=== PATIENT | male | born 1955 | race Caucasian/White ===

== ENCOUNTER 2017-03-07 11:16 | Emergency (ER) | payer OTHER ==
[2017-03-07 11:22] VITALS: TEMP 97.9
--- NOTE | 2017-03-07 12:00 | EDPHY ---
H & P Stated Complaint: Persistant hiccups for 1 week. Time Seen by Provider: 03/07/17 12:00 - Personal History Current Tetanus Diphtheria and Acellular Pertussis (TDAP): Yes - Medical/Surgical History Hx Asthma: No Hx Chronic Respiratory Disease: No Hx Diabetes: No Hx Cardiac Disease: No Hx Renal Disease: No Hx Cirrhosis: No Hx Alcoholism: No Hx HIV/AIDS: No Hx Splenectomy or Spleen Trauma: No Other PMH: HTN. - Social History Smoking Status: Never smoked Constitutional: Initial Vital Signs Temperature (C) 36.6 C 03/07/17 11:19 Heart Rate 78 03/07/17 11:19 Respiratory Rate 16 03/07/17 11:19 Blood Pressure 157/87 H 03/07/17 11:19 O2 Sat (%) 95 03/07/17 11:19 O2 Delivery Mode Room Air Allergies/Adverse Reactions: No Known Allergies Allergy (Unverified 03/07/17 11:21) Home Medications: Medication Instructions Recorded LORazepam [Ativan 1 mg (RX)] 1 mg PO TID PRN #14 tab 03/07/17 Losartan Potassium 03/07/17 chlorproMAZINE HCL [Thorazine (*)] 25 mg PO TID #30 tab 03/07/17 Medical Decision Making - Diagnostics Imaging Results: Imaging Impressions Chest X-Ray 03/07/17 12:37 Impression: Retrosternal soft tissue opacity may represent a mass. Recommend CT chest to further evaluate. Dr. Downs discussed these findings by telephone with Stef Mccauley MD on at 13:32 hours. Chest/Thorax CTA 03/07/17 13:39 Impression: 1. No pulmonary embolism to the segmental level. 2. No anterior mediastinal mass to correlate with the apparent soft tissue opacity seen on comparison chest x-ray. 3. Enlarged right hilar lymph node is nonspecific but may be related to right lung granuloma is disease. 4. Small hiatal hernia. Dr. Downs discussed these findings by telephone with Stef Mccauley MD on at 14:23. Imaging: Discussed imaging studies w/ director call center sales Radiologist, I viewed and interpreted images myself ED Course/Re-evaluation: CHIEF COMPLAINT: Hiccups HISTORY OF PRESENT ILLNESS: The patient is a 61 y/o male complaining of persistent hiccups since last Friday, 1 week ago. He has been eating less and taking Prilosec and Zantac with no relief. It occasionally stops when he eats, but the hiccups shortly come back. His notes that he has been hiccuping while sleeping. Denies choking on food, eating spicy food, abdominal pain, vomiting, nausea, chest pain, paresthesias or other pertinent symptoms. REVIEW OF SYSTEMS: A 10 point review of systems was performed and is negative with the exception of the elements mentioned in the history of present illness. PHYSICAL EXAM: HR, BP, O2 Sat, RR. Temp noted General Appearance: Alert, well hydrated, appropriate, and non-toxic appearing. Head: Atraumatic without scalp tenderness or obvious injury Eyes: Pupils equal, round, reactive to light and accommodation, EOMI, no trauma , no injection. Ears: Clear bilaterally, no perforation, normal landmarks Nose: Atraumatic, no rhinorrhea, clear. Throat: Mucus membranes moist. Neck: Supple, nontender, no lymphadenopathy. Respiratory: No retractions, no distress, no wheezes, and no accessory muscle use. Lungs are clear to auscultation bilaterally. Cardiovascular: Regular rate and rhythm, no murmurs, rubs, or gallops. Good capillary refill all extremities. Gastrointestinal: Abdomen is soft, nontender, non-distended, no masses, no rebound, no guarding, no peritoneal signs. Musculoskeletal: Normal active ROM of all extremities, atraumatic. Neurological: Alert, appropriate, and interactive. Non-focal neuro Skin: No rashes, good turgor, no nodules on palpation. Past medical history: Hypertension, peripheral neuropathy Past surgical history: Denies Family history: Denies Social history: at bedside, lives in [place], on sabbatical at DIAGNOSTICS/PROCEDURES/CRITICAL CARE TIME: The 12 lead EKG was interpreted by myself as sinus rhythm. There are anterior/ lateral T-wave inversions and anterior/lateral ST depression. See hard copy and/ or "tracemaster" electronic copy for interpretation. Chest X-ray: Patient has a possible retrosternal mass Chest CT: No acute findings DIFFERENTIAL DIAGNOSIS: The differential diagnosis for the patient's hiccups included but is not limited to a TECHNICAL COMMUNICATION TEACHER disorder, vagus phrenic nerve disorder, gastroenterology disorder, cardiac disorder, or toxic metabolic disorders. MEDICAL DECISION MAKING: The patient is a 61 y/o male presenting with persistent hiccuping for 1 week. His physical exam is normal besides the hiccups. He is not having any cardiac symptoms. Labs, EKG, and chest x-ray ordered. 25mg PO Thorazine administered. 1245: EKG interpreted as anterior/lateral T-wave inversions and anterior/ lateral ST depression. 1339: Spoke with radiologist, the patient has a possible retrosternal mass. Plan on chest CT. 1340: Reassessed patient, he is no longer hiccuping. I have also discussed the chest x-ray findings and the need for a chest CT to rule out a retrosternal mass. Patient is comfortable with this plan. He is not complaining of any shortness of breath when performing his daily activities or exercises. 1424: Spoke with radiologist, he reports the patient has no acute findings for the chest CT. 1425: Reassessed patient and discussed imaging findings. I have also advised him to follow up with a remedial reading teacher for provocative testing regarding his abnormal EKG. Return precautions provided; patient is comfortable with this plan. 1439: Consulted with Dr. Xiao, cardiac tank car repairer, regarding an outpatient follow up. They will call the patient to schedule a nuclear medicine stress test. 1441: Reassessed patient and discussed plan for outpatient nuclear medicine stress test. Return precautions provided; patient is comfortable with this plan. - Data Points Laboratory Results: Laboratory Results 03/07/17 12:48 03/07/17 12:48 03/07/17 03/07/17 12:48 12:48 WBC 6.11 10^3/uL 10^3/uL (3.80-9.50) RBC 5.09 10^6/uL 10^6/uL (4.40-6.38) Hgb 16.5 g/dL g/dL (13.7-17.5) Hct 46.3 % % (40.0-51.0) MCV 91.0 fL fL (81.5-99.8) MCH 32.4 pg pg (27.9-34.1) MCHC 35.6 g/dL g/dL (32.4-36.7) RDW 12.7 % % (11.5-15.2) Plt Count 274 10^3/uL 10^3/uL (150-400) MPV 8.7 fL fL (8.7-11.7) Neut % (Auto) 59.2 % % (39.3-74.2) Lymph % (Auto) 28.0 % % (15.0-45.0) [place] % (Auto) 9.2 % % (4.5-13.0) Eos % (Auto) 2.5 % % (0.6-7.6) Baso % (Auto) 0.8 % % (0.3-1.7) Nucleat RBC Rel Count 0.0 % % (0.0-0.2) Absolute Neuts (auto) 3.62 10^3/uL 10^3/uL (1.70-6.50) Absolute Lymphs (auto) 1.71 10^3/uL 10^3/uL (1.00-3.00) Absolute Monos (auto) 0.56 10^3/uL 10^3/uL (0.30-0.80) Absolute Eos (auto) 0.15 10^3/uL 10^3/uL (0.03-0.40) Absolute Basos (auto) 0.05 10^3/uL 10^3/uL (0.02-0.10) Absolute Nucleated RBC 0.00 10^3/uL 10^3/uL (0-0.01) Immature Gran % 0.3 % % (0.0-1.1) Immature Gran # 0.02 10^3/uL 10^3/uL (0.00-0.10) Sodium 144 mEq/L mEq/L (134-144) Potassium 4.1 mEq/L mEq/L (3.5-5.2) Chloride 103 mEq/L mEq/L (97-110) Carbon Dioxide 27 mEq/l mEq/l (22-31) Anion Gap 14 mEq/L mEq/L (8-16) BUN 21 mg/dL mg/dL (7-23) Creatinine 0.9 mg/dL mg/dL (0.7-1.3) Estimated GFR > 60 Glucose 93 mg/dL mg/dL (70-100) Calcium 9.5 mg/dL mg/dL (8.5-10.4) Magnesium 2.1 mg/dL mg/dL (1.6-2.3) Troponin I < 0.012 ng/mL ng/mL (0.000-0.034) Medications Given: Discontinued Medications Chlorpromazine HCl (Thorazine) 25 mg PO EDNOW ONE Stop: 03/07/17 12:34 Last Admin: 03/07/17 12:51 Dose: 25 mg Departure - Departure Disposition: Home, Routine, Self-Care Clinical Impression: Hiccups Condition: Good Instructions: Hiccups (ED) Additional Instructions: 1. Follow-up with your primary doctor within 72 hours for unimproved symptoms. 2. Follow up with a remedial reading teacher for further testing, as soon as possible, within one week. You have been referred to Dr. Xiao, remedial reading teacher, for a nuclear medicine stress test. 3. Follow up with a holder pile driving for your hiccups. 4. Return to the Emergency Department for fever, chest pain, shortness of breath , increasing pain or other worsening of condition. Referrals: RITA HEATON [Other] - As per Instructions Tristan Xiao MD [Medical Doctor] - As per Instructions Mike Montoya MD [Medical Doctor] - As per Instructions Prescriptions: chlorproMAZINE HCL [Thorazine (*)] 25 mg PO TID #30 tab LORazepam [Ativan 1 mg (RX)] 1 mg PO TID PRN #14 tab PRN Reason: Anxiety Report Scribed for: Stef Mccauley Report Scribed by: Evelin Vieira Date of Report: 03/07/17 Time of Report: 12:07
[2017-03-07] MEDS ORDERED: chlorproMAZINE HCL 25 MG TAB PO ONE (12:33)
--- NOTE | 2017-03-07 12:48 | CPEKG ---
Heart Rate: 62 RR Interval: 968 P-R Interval: 156 QRSD Interval: 112 QT Interval: 392 QTC Interval: 398 P [place]: 63 QRS [place]: -24 T Wave [place]: -65 EKG Severity - ABNORMAL ECG - EKG Impression: SINUS RHYTHM EKG Impression: NONSPECIFIC INTRAVENTRICULAR CONDUCTION DELAY EKG Impression: MINIMAL ST DEPRESSION, ANTEROLATERAL LEADS Electronically Signed By: Stef Mccauley 07-Mar-2017 14:56:02
[2017-03-07 12:55] LABS: % IMMATURE GRANULYOCYTES 0.3 % (0.0-1.1); ABSOLUTE IMMATURE GRANULOCYTES 0.02 10^3/uL (0.00-0.10); ADD DIFF? NO; ADD MORPH? NO; ADD SCAN? NO; ATYPICAL LYMPHOCYTE FLAG 10 (0-99); FRAGMENT RBC FLAG 0 (0-99); HEMATOCRIT 46.3 % (40.0-51.0); HEMOGLOBIN 16.5 g/dL (13.7-17.5); LEFT SHIFT FLG 0 (0-99); LIPEMIA HEMOLYSIS FLAG 90 (0-99); MEAN CELL HEMOGLOBIN 32.4 pg (27.9-34.1); MEAN CELL HEMOGLOBIN CONCENTR. 35.6 g/dL (32.4-36.7); MEAN PLATELET VOLUME 8.7 fL (8.7-11.7); PLATELET CLUMPS FLAG 10 (0-99); PLATELET COUNT 274 10^3/uL (150-400); RED BLOOD CELL COUNT 5.09 10^6/uL (4.40-6.38); RED CELL DISTRIBUTION WIDTH 12.7 % (11.5-15.2)
[2017-03-07 13:10] LABS: ANION GAP 14 mEq/L (8-16); CALCIUM 9.5 mg/dL (8.5-10.4); CARBON DIOXIDE 27 mEq/l (22-31); CHLORIDE 103 mEq/L (97-110); CREATININE 0.9 mg/dL (0.7-1.3); GLOMERULAR FILTRATION RATE > 60; GLUCOSE 93 mg/dL (70-100); MAGNESIUM 2.1 mg/dL (1.6-2.3); POTASSIUM 4.1 mEq/L (3.5-5.2); SODIUM 144 mEq/L (134-144)
[2017-03-07 13:20] LABS: TROPONIN I < 0.012 ng/mL (0.000-0.034)
[2017-03-07] MEDS ORDERED: IOPAMIDOL (ISOVUE 370) 100 ML BTL IV ONE (13:40)
[2017-03-07 14:52] VITALS: BP 144/87; PULSE 74; RESP 18; O2SAT 93
== END 2017-03-07 14:51 | disposition home or self-care (01) ==
DX: R06.6 Hiccough (principal); I10 Essential (primary) hypertension
CPT/HCPCS: Q9967